=== PATIENT | female | born 1990 | race Two or more races ===

== ENCOUNTER 2022-08-11 15:38 | Emergency (ER) | payer OTHER ==
[~2022-08-11] VITALS: Ht 152.4 cm; Wt 68.0 kg
[2022-08-11] MEDS ORDERED: ZESTRIL20 MG PO (15:50)
== END 2022-08-11 23:12 | disposition home or self-care (01) ==
LOC: ER 15:38
DX: T78.3XXA Angioneurotic edema, initial encounter (principal); I10 Essential (primary) hypertension